=== PATIENT | female | born 1995 ===

== ENCOUNTER 2017-04-03 14:30 | Observation (INO) | payer OTHER, SELFPAY ==
[2017-04-03] MEDS ORDERED: Sodium Chloride 0.9% 1,000 ML IV ONE (14:52)
--- NOTE | 2017-04-03 15:01 | C.PDOC ---
History Of Present Illness Patient is a 21 y/o F , with care, but no ultrasound in this , 18 weeks , presenting with vaginal spotting. Denies passage of clots. Denies dysuria. Reports some suprapubic cramping. Time Seen by Provider: 04/03/17 14:43 Chief Complaint (Nursing): Female Genitourinary Past Medical History Vital Signs: Last Vital Signs Temp 98.3 F 04/03/17 14:31 Pulse 79 04/03/17 14:31 Resp 18 04/03/17 14:31 BP 139/76 04/03/17 14:31 Pulse Ox 99 04/03/17 15:51 Family History: States: Unknown Family Hx - Social History Hx Alcohol Use: No Hx Substance Use: No - Immunization History Hx Tetanus Toxoid Vaccination: Yes Hx Influenza Vaccination: No Hx Pneumococcal Vaccination: No Review Of Systems Except As Marked, All Systems Reviewed And Found Negative. Constitutional: Negative for: Fever, Chills Cardiovascular: Negative for: Chest Pain, Palpitations, Orthopnea, Edema Respiratory: Negative for: Cough, Shortness of Breath, SOB with Excertion, Wheezing Gastrointestinal: Positive for: Abdominal Pain (suprapubic cramping). Negative for: Nausea, Vomiting, Diarrhea Genitourinary: Positive for: Vaginal Bleeding. Negative for: Dysuria, Frequency , Hematuria Skin: Negative for: Rash Neurological: Negative for: Weakness, Numbness Physical Exam - Physical Exam Appears: Well, Non-toxic, No Acute Distress Skin: Normal Color, Warm, Dry Head: Atraumatic, Normacephalic Eye(s): bilateral: Normal Inspection, PERRL, EOMI Neck: Supple Cardiovascular: Rhythm Regular Respiratory: Normal Breath Sounds, No Rales, No Rhonchi, No Wheezing Gastrointestinal/Abdominal: Soft, No Tenderness, Other (gravid) Back: Normal Inspection, No CVA Tenderness Extremity: Normal ROM ED Course And Treatment - Laboratory Results Result Diagrams: 04/03/17 15:09 04/03/17 15:09 O2 Sat by Pulse Oximetry: 99 Medical Decision Making Medical Decision Making: Labs ordered and IVF given in ED. Ultrasound ordered. 3:50PM Preliminary ultrasound as read by me and confirmed by tech shows patient 20 weeks with open cervix. Immediately called Dr. Jeffers, application support administrator senior web applications developer. He requested that patient be brought to L&D. When I went to notify nurse, patient was being transported back from ultrasound and was taken by same serology technician immediately to L&D. Disposition - Disposition Disposition: HOSPITALIZED Disposition Time: 15:51 Condition: FAIR Forms: [facility] (Pashto) - Clinical Impression Clinical Impression: Vaginal bleeding in
[2017-04-03 15:17] LABS: BASO % 0.2 % (0.0-2.0); EOS # 0.4 K/uL (0.0-0.7); EOS % 2.6 % (0.0-4.0); HEMATOCRIT 37.3 % (34.0-47.0); LYMPH # 1.9 K/uL (1.0-4.3); LYMPH % 13.3 % (20.0-40.0); MEAN CELL VOLUME 88.5 fL (81.0-99.0); MEAN CORPUSCULAR HEMOGLOBIN 29.8 pg (27.0-31.0); MEAN CORPUSCULAR HGB CONC 33.7 g/dL (33.0-37.0); MEAN PLATELET VOLUME 9.1 fL (7.2-11.7); MONO % 7.2 % (0.0-10.0); RED CELL DISTRIBUTION WIDTH 13.8 % (11.5-14.5); WHITE BLOOD COUNT 14.4 K/uL (4.8-10.8)
[2017-04-03 15:23] LABS: CHLORIDE 103 mmol/L (98-107)
[2017-04-03 15:24] LABS: POTASSIUM 3.9 mmol/L (3.6-5.2); SODIUM 137 mmol/L (132-148)
[2017-04-03 15:26] LABS: AST/SGOT 15 U/L (14-36); BILIRUBIN,TOTAL 0.2 mg/dL (0.2-1.3); CARBON DIOXIDE 20 mmol/L (22-30); GFR AFRICAN-AMERICAN > 60
[2017-04-03 15:27] LABS: ALB/GLOB RATIO 1.2 (1.0-2.1); ALKALINE PHOSPHATASE 60 U/L (38-126); ALT/SGPT 28 U/L (9-52); BLOOD UREA NITROGEN 11 mg/dL (7-17); CALCIUM 9.3 mg/dl (8.6-10.4); GLUCOSE,RANDOM 77 mg/dL (65-105); TOTAL PROTEIN 6.6 g/dL (6.3-8.3)
[2017-04-03 15:39] LABS: RBC URINE 1 /hpf (0-3); URINE BILIRUBIN NEGATIVE (NEGATIVE); URINE BLOOD NEGATIVE (NEGATIVE); URINE COLOR Yellow (YELLOW); URINE GLUCOSE (UA) NORMAL (Normal); URINE KETONE NEGATIVE (NEGATIVE); URINE LEUKOCYTE ESTERASE NEG Leu/uL (Negative); URINE PROTEIN NEGATIVE (NEGATIVE); URINE UROBILINOGEN NORMAL mg/dL (0.2-1.0)
--- NOTE | 2017-04-03 16:33 | US ---
Pelvic ultrasound History: 19 weeks . Vaginal bleeding. Comparison: None available. Technique: Real-time sonography was performed through the pelvis. Findings: Limited study for viability purposes only. Please note dedicated anatomic survey is recommended at an interval date if clinically indicated. Intrauterine noted. Mean ultrasound age of approximately 20 weeks and 0 days. heart rate of 146 beats per minute. Biparietal diameter measures 4.8 centimeters. Head circumference measures 17.9 centimeters. Abdominal circumference measures 13.6 centimeters. Femur length measures 3.2 centimeters. Cephalic presentation. Posterior placental position. Cervical os appears open/dilated measuring up to 3.3 x 1.1 centimeters as seen on series 1, image 20. No free fluid in the pelvic cul-de-sac. Impression: Limited study for viability purposes only. Dedicated anatomic survey at an interval date is recommended for evaluation of anomalies. Cervical os appears dilated and open measuring up to 3.3 x 1.1 centimeters as seen on series 1, image 20. Clinical correlation and or follow-up ultrasound is recommended to evaluate this region. Intrauterine with mean ultrasound age of approximately 20 weeks 0 days with heart rate of 146 beats per minute. Posterior placenta.
--- NOTE | 2017-04-03 17:44 | OBHP ---
Datetime: 04/03/2017 16:57 IP Adm Impression: , intrauterine ; No Active Labor IP Adm Impression Other: Bulging Membranes at 3cm dilatation IP Admit Plan: Observation/Evaluation Admit Comment, IP Provider: 21yo with IUP at 18.3wks sent to the LND department for further carolyn luation due to a pelvic sonogram report which depicted a 20wk with opened cervix and bulgin g membranes.She reports that she had intercourse yesterday and started having vaginal spotting after wiping since this am. She reports that she was seen at [facility] and had been told she is 18wks . Pt denies any h/o STDs, TOPs, pelvic infections PShx: No surgeries Appeared well, Afebrile Lungs and heart - Normal Abd: soft, NT, BS- present UT- Fundal Height - 20cm FHR- 158, no tenderness Speculum Exam: Cx- 2-3/50/-2. Membranes Bulging through the cervix Assessment: IUP at 18+ weeks Cervical Dilatation with Bulging membranes. No Active labor Plan: Options for management including conservative management or emergent cerclage with risks of the pr ocedure including failure of the cerclage, Rupture of the membranes during the procedure, infection w ith possible pelvic sepsis were discussed. Questions from Pt were answered. Pt prefered to have a cer clage placed. The risks were discussed again. A consent obtained. call center coordinator to OR vaginal cultures for GBS and GC/Chlamydia. NPO. (Annotations: Data stored by N on behalf of user) Extremities - PN: Normal Abdomen - PN: Normal Back - PN: Normal Breast - PN: Normal Lungs - PN: Normal Heart - PN: Normal Neurologic - PN: Normal General - PN: Normal FHR - Baseline A Provider: 156 Membranes, Provider: Bulging Contraction Comments Provider: None Gestation - Est Wks by US: 18.3 EGA AdmitDate IP: 18.5 Vital Signs Provider: Reviewed IP Chief Complaint: Vaginal bleeding; Maternal discomfort NICHD Variability Prov Fetus A: Moderate 6-25bpm NICHD Accel Fetus A IP Provider: 10X10 FHR Category Provider Fetus A: Category II NICHD Decel Fetus A IP Provider: None Dilatation, Provider: 2-3 Effacement, Provider: 50 Station, Provider: -2 Genitourinary Exam: Normal
--- NOTE | 2017-04-03 17:58 | CP.PCM.HP ---
History of Present Illness - History of Present Illness History of Present Illness: 21yo with IUP at 18+wks seen and evaluated for 18wk with an opened cervix and a bulging membranes. 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 Present on Admission - Present on Admission Any Indicators Present on Admission: No Past Patient History - Infectious Disease Hx of Infectious Diseases: None - Past Social History Smoking Status: Never Smoked - CARDIAC Hx Cardiac Disorders: No - PULMONARY Hx Respiratory Disorders: No - NEUROLOGICAL Hx Neurological Disorder: No - HEENT Hx HEENT Problems: No - RENAL Hx Chronic Kidney Disease: No - ENDOCRINE/METABOLIC Hx Endocrine Disorders: No - HEMATOLOGICAL/ONCOLOGICAL Hx Blood Disorders: No - INTEGUMENTARY Hx Dermatological Problems: No - MUSCULOSKELETAL/RHEUMATOLOGICAL Hx Musculoskeletal Disorders: No - GASTROINTESTINAL Hx Gastrointestinal Disorders: No - GENITOURINARY/GYNECOLOGICAL Hx Genitourinary Disorders: No - PSYCHIATRIC Hx Psychophysiologic Disorder: No Hx Substance Use: No - SURGICAL HISTORY Hx Surgeries: No - ANESTHESIA Hx Anesthesia: No Meds Allergies/Adverse Reactions: Allergies Allergy/AdvReac Type Severity Reaction Status Date / Time No Known Allergies Allergy Verified 11/14/15 19:38 Physical Exam - Constitutional Appears: Well - Eye Exam Eye Exam: Normal appearance - Respiratory Exam Respiratory Exam: Clear to Auscultation Bilateral, NORMAL BREATHING PATTERN - Cardiovascular Exam Cardiovascular Exam: REGULAR RHYTHM, RRR - GI/Abdominal Exam GI & Abdominal Exam: Normal Bowel Sounds - Exam Speculum exam: Vaginal Bleeding (Cervix opened with Bulging membranes) - Extremities Exam Extremities exam: Positive for: normal inspection - Neurological Exam Neurological exam: CN II-XII Intact Results - Vital Signs Recent Vital Signs: Last Vital Signs Temp 98.3 F 04/03/17 14:31 Pulse 79 04/03/17 14:31 Resp 18 04/03/17 14:31 BP 139/76 04/03/17 14:31 Pulse Ox 99 04/03/17 16:26 - Labs Result Diagrams: 04/03/17 15:09 04/03/17 15:09 Labs: Laboratory Results - last 24 hr 04/03/17 04/03/17 04/03/17 15:09 15:09 15:09 WBC 14.4 H RBC 4.21 Hgb 12.5 Hct 37.3 MCV 88.5 MCH 29.8 MCHC 33.7 RDW 13.8 Plt Count 248 MPV 9.1 Neut % (Auto) 76.7 H Lymph % (Auto) 13.3 L Mcpherson % (Auto) 7.2 Eos % (Auto) 2.6 Baso % (Auto) 0.2 Neut # 11.0 H Lymph # 1.9 Mcpherson # 1.0 H Eos # 0.4 Baso # 0.0 Sodium 137 Potassium 3.9 Chloride 103 Carbon Dioxide 20 L Anion Gap 18 BUN 11 Creatinine 0.7 Est GFR ( Amer) > 60 Est GFR (Non-Af Amer) > 60 Random Glucose 77 Calcium 9.3 Total Bilirubin 0.2 AST 15 ALT 28 Alkaline Phosphatase 60 Total Protein 6.6 Albumin 3.6 Globulin 3.0 Albumin/Globulin Ratio 1.2 Beta HCG, Quant 9936.00 Urine Color Urine Clarity Urine pH Ur Specific [place] Urine Protein Urine Glucose (UA) Urine Ketones Urine Blood Urine Nitrate Urine Bilirubin Urine Urobilinogen Ur Leukocyte Esterase Urine RBC (Auto) Ur Squamous Epith Cells Amorphous Sediment Blood Type O POSITIVE Blood Type Confirm O POSITIVE Antibody Screen Negative 04/03/17 15:09 WBC RBC Hgb Hct MCV MCH MCHC RDW Plt Count MPV Neut % (Auto) Lymph % (Auto) Mcpherson % (Auto) Eos % (Auto) Baso % (Auto) Neut # Lymph # Mcpherson # Eos # Baso # Sodium Potassium Chloride Carbon Dioxide Anion Gap BUN Creatinine Est GFR ( Amer) Est GFR (Non-Af Amer) Random Glucose Calcium Total Bilirubin AST ALT Alkaline Phosphatase Total Protein Albumin Globulin Albumin/Globulin Ratio Beta HCG, Quant Urine Color Yellow Urine Clarity Hazy Urine pH 7.0 Ur Specific [place] 1.020 Urine Protein Negative Urine Glucose (UA) Normal Urine Ketones Negative Urine Blood Negative Urine Nitrate Negative Urine Bilirubin Negative Urine Urobilinogen Normal Ur Leukocyte Esterase Neg Urine RBC (Auto) 1 Ur Squamous Epith Cells 1 Amorphous Sediment Rare H Blood Type Blood Type Confirm Antibody Screen Assessment & Plan (1) with 18 completed weeks gestation Status: Acute (2) Premature cervical dilation in second trimester Status: Acute - Assessment and Plan (Free Text) Plan: Overlock Operator to the OR Vaginal cultures Mefoxin 2gm IV - Date & Time Date: 04/03/17 Time: 18:03 Decision To Admit - Pt Status Changed To: Hospital Disposition Of: Observation - InPatient: Physician Admission Certification:: tyson - . Admitting Physician: Nasim Jeffers
[2017-04-03] MEDS ORDERED: Penicillin G 5 Million Unit Vial IVPB ONE (18:33)
[2017-04-03] MEDS ORDERED: Penicillin G Potassium 5 MU in Sodium Chloride 0.9% 50 ML IV ONE (18:36)
[2017-04-03] MEDS: Lactated Ringer's 1,000 ML IV SCH (18:47)
[2017-04-03] MEDS ORDERED: Lactated Ringer's 1,000 ML IV ONE ×2 (19:42)
[2017-04-03] MEDS ORDERED: cefOXitin IV 2 gm in Dextrose 2 GM/50 ML BAG IVPB ONE (22:05)
--- NOTE | 2017-04-03 23:15 | PCM.SURG1 ---
Surgeon's Initial Post Op Note - Surgeon's Notes Surgeon: Dr Jeffers Watch Inspector Final Movement: None Type of Anesthesia: Spinal Anesthesia Administered By: Dr Knight Pre-Operative Diagnosis: IUP at 18+ weeks with Cervical Dilatation and Bulging membranes Operative Findings: 18-20wk sized uterus. Cervix: 2-3cm dilated with the amniotic membranes bulging at the level of the internal os. Copious amounts of cervical mucus seen. IV Fluid intake: 500mls. EBL- 5mls. urine output- 50mls Post-Operative Diagnosis: Same as Preop diagnosis Operation Performed: Leblanc Cerclage with Mersilk Specimen/Specimens Removed: None Estimated Blood Loss: EBL {In ML}: 5 Blood Products Given: N/A Post-Op Condition: Good Date of Surgery/Procedure: 04/03/17 Time of Surgery/Procedure: 23:17
[2017-04-04] MEDS ORDERED: NIFEdipine 30 mg ER Tab PO ONE (01:05)
[2017-04-04] MEDS: Penicillin G Potassium 2.5 MU in Dextrose 5% In Water 50 ML IV SCH ×2 (03:00→06:45)
--- NOTE | 2017-04-04 09:34 | OP ---
PROCEDURE DATE: 04/03/2017 PREOPERATIVE DIAGNOSIS: A 21-year-old with intrauterine at 18 weeks with cervical dilatation with bulging membrane. POSTOPERATIVE DIAGNOSIS: A 21-year-old with intrauterine at 18 weeks with cervical dilatation with bulging membrane. PROCEDURE DONE: Leblanc cerclage using 5 mm Mersilene done 04/03/2017. SURGEON: Nasim Jeffers MD TYPE OF ANESTHESIA: Spinal. ANESTHESIA ADMINISTERED BY: Richie Knight MD OPERATIVE FINDINGS: An 18-20-weeks' size . The cervix was about 2-3 cm dilated on vaginal examination where the amniotic membranes bulging at the level of the external os. Copious amounts of cervical mucus was seen. INTRAVENOUS FLUID INTAKE: About 500 mL. ESTIMATED BLOOD LOSS: 500 mL. URINE OUTPUT: 50 mL. COMPLICATIONS: None. DESCRIPTION OF PROCEDURE: After obtaining the informed consent, the patient was sent to the OR with IV running. The patient was placed in the supine position with on the OR table. After adequate spinal anesthesia, the patient was repositioned in the dorsal lithotomy position. The patient was then prepped and draped in the sterile fashion. The urinary bladder was drained using the straight cath with output of about 50 mL of clear urine. The posterior wall of the vagina was depressed using a weighted-speculum and anterior wall was elevated with an L-shaped retractor to expose the cervix. With the above findings, both anterior lip of the cervix and posterior lip of the cervix were held with sponge forceps. Using a sponge stick, the bulging membrane was gently pushed into the uterine cavity. Using 5 mm Mersilene suture 4 areas around the cervix with 5 mm Mersilene suture and a knot was placed at 12 o'clock ,after withdrawing the sponge stick. Once the procedure had been done and cervix found to be closed and the membranes pushed behind it, the instruments were taken off and the patient was replaced in a supine position and later transferred to the recovery room awake and in stable condition. There were no complications during the procedure. All counts of the instrument used and gauze used were correct x3. Nasim Jeffers MD [facility] # [id number]
--- NOTE | 2017-04-04 10:37 | OBPN ---
Datetime: 04/04/2017 10:34 IP Procedures: Sterile Vag Exam Contraction Comments Provider: none IP Progress Note Comment: pt was examined at bed side.still feels pain but better than before ve closed/th/-3 cerclage intact plan dc forte reg deit dc bety cont procardia cont close observation Dilatation, Provider: 0 Effacement, Provider: 0 Station, Provider: -3 Datetime: 04/03/2017 16:57 Membranes, Provider: Bulging FHR - Baseline A Provider: 156 Gestation - Est Wks by US: 18.3 Vital Signs Provider: Reviewed NICHD Accel Fetus A IP Provider: 10X10 FHR Category Provider Fetus A: Category II NICHD Variability Prov Fetus A: Moderate 6-25bpm NICHD Decel Fetus A IP Provider: None
[2017-04-04] MEDS: Lactated Ringer's 1,000 ML IV SCH (15:00)
[2017-04-05] MEDS: Lactated Ringer's 1,000 ML IV SCH (10:38)
--- NOTE | 2017-04-05 10:42 | US ---
Limited Ob ultrasound Indication: Status post cerclage Comparison: Ob , limited ultrasound performed 04/03/17 Technique: Real-time ultrasound was performed through the pelvis. Findings: There is a single living fetus in breech presentation. Posterior placenta. The placenta is not previa. There are no adnexal masses or cysts evident. Cervix measures approximately 3.4 cm. Interval cerclage. Otherwise unremarkable. Estimated heart rate 146.3 beats per min. Impression: Estimated heart rate 146.3 beats per min. Cervix measures approximately 3.4 cm. Interval cerclage. Otherwise unremarkable.
--- NOTE | 2017-04-05 11:09 | OBPN ---
Datetime: 04/05/2017 11:05 IP Progress Note Comment: S-patient had mild spotting overnight but none now O-VS Afebrile Abdomen gravid and nontender; no fundal tenderness SVE def A/P Patient s/o rescue cerclage at 19 wga.[address] by [address] mehta and patient starte don po rcardia post op -continue procardia -monitor closely -modified bedrest -scd for dvt prophylaxis -ultrasound today -check cbc daily -monitor closely for signs of chorio -if stable consider discharge in am
[2017-04-05 11:30] LABS: BASO % 0.3 % (0.0-2.0); EOS # 0.2 K/uL (0.0-0.7); EOS % 1.6 % (0.0-4.0); HEMATOCRIT 35.5 % (34.0-47.0); LYMPH # 1.3 K/uL (1.0-4.3); LYMPH % 10.1 % (20.0-40.0); MEAN CELL VOLUME 88.3 fL (81.0-99.0); MEAN CORPUSCULAR HEMOGLOBIN 29.6 pg (27.0-31.0); MEAN CORPUSCULAR HGB CONC 33.5 g/dL (33.0-37.0); MEAN PLATELET VOLUME 8.7 fL (7.2-11.7); MONO # 0.9 K/uL (0.0-0.8); MONO % 7.3 % (0.0-10.0); RED CELL DISTRIBUTION WIDTH 14.2 % (11.5-14.5)
[2017-04-05 11:47] LABS: ALB/GLOB RATIO 1.2 (1.0-2.1); ALKALINE PHOSPHATASE 55 U/L (38-126); ALT/SGPT 22 U/L (9-52); AST/SGOT 14 U/L (14-36); BILIRUBIN,TOTAL 0.2 mg/dL (0.2-1.3); BLOOD UREA NITROGEN 6 mg/dL (7-17); CALCIUM 9.6 mg/dl (8.6-10.4); CARBON DIOXIDE 21 mmol/L (22-30); CHLORIDE 106 mmol/L (98-107); GFR AFRICAN-AMERICAN > 60; GLUCOSE,RANDOM 85 mg/dL (65-105); POTASSIUM 3.6 mmol/L (3.6-5.2); SODIUM 136 mmol/L (132-148)
[2017-04-05 14:59] LABS: URINE BACTERIA RARE (<OCC); URINE BILIRUBIN NEGATIVE (NEGATIVE); URINE BLOOD 2+ (NEGATIVE); URINE COLOR Colorless (YELLOW); URINE GLUCOSE (UA) NORMAL (Normal); URINE KETONE NEGATIVE (NEGATIVE); URINE LEUKOCYTE ESTERASE NEG Leu/uL (Negative); URINE PROTEIN NEGATIVE (NEGATIVE); URINE UROBILINOGEN NORMAL mg/dL (0.2-1.0)
[2017-04-05 15:03] LABS: RBC URINE 1 /hpf (0-3); WBC URINE 2 /hpf (0-5)
--- NOTE | 2017-04-05 18:13 | OBPN ---
Datetime: 04/05/2017 18:11 IP Progress Note Comment: Patient re-examined with Dr Jeffers speculum exam repeated.+poolimng.nitrazine and ferning positive cevrix 2 cm dilated Exaplined to patient and family about PPROM.Discussed need for removal of cerclage due to pprom an d chorio secondary to uterine tenderness and pain. Cerclage removed cervix 2-3 cm now Discussed induction due to PPROM and chorio Vital Signs Provider: Reviewed
--- NOTE | 2017-04-05 19:44 | OBPN ---
Datetime: 04/05/2017 19:37 IP Progress Note Comment: Patient states that she is feeling some abdominal pain Drumright irregular ctx sve 2-3/50/-3 A/P Patient with previable PPROM and chorio at 19 wga. -continue antibiotics -cytotec 600mcg placed vaginally -monitor closely
[2017-04-05] MEDS: SODIUM CHLORIDE IVPB SCH (20:30)
[2017-04-05] MEDS: AMPICILLIN IVPB SCH (20:30)
[2017-04-06] MEDS: SODIUM CHLORIDE IVPB SCH ×6 (00:30→20:36)
[2017-04-06] MEDS: AMPICILLIN IVPB SCH ×6 (00:30→20:36)
[2017-04-06] MEDS ORDERED: Oxycodone/Acetaminophen 5/325 mg Tab PO PRN ×2 (02:12)
[2017-04-06] MEDS ORDERED: Oxytocin 30 UNIT 30 UNITS/500 ML BAG IV SCH (02:15)
--- NOTE | 2017-04-06 02:15 | OBDS ---
MATERNAL INFORMATION Provider Comments: patient with previable pprom at 19 wga fetus Delivered in the bed.cord clamped and cut.fetus taken to warmer.placenta spontaneously deliv ered.Heavy bleeding noted.pitocin mixed in LR started.Bimenual exam done.small blood clots removed.ut erus empty.Im merthegine 0.2mg given .Bleeding noted to be average after that.Fundus firm.patient sta ble LABOR SUMMARY EDC: 08/30/2017 00:00 No. Babies in Womb: 1 LABOR INFORMATION Cervical Ripening Agents: Cytotec @ (Annotations: 600MG INTRA VAGINAL BY DR STEWARD) Group B Beta Strep: Done, Result Unknown (Annotations: Done 04/03/[address] Jeffers.) MEMBRANES Membranes Rupture Method: Spontaneous Rupture of Membranes: 04/05/2017 17:55 Amniotic Fluid Color: Clear Amniotic Fluid Amount: Scant Amniotic Fluid Odor: None
[2017-04-06 07:32] LABS: BASO % 0.3 % (0.0-2.0); EOS # 0.2 K/uL (0.0-0.7); LYMPH # 1.3 K/uL (1.0-4.3); LYMPH % 7.9 % (20.0-40.0); MEAN CELL VOLUME 88.9 fL (81.0-99.0); MEAN CORPUSCULAR HEMOGLOBIN 29.9 pg (27.0-31.0); MEAN CORPUSCULAR HGB CONC 33.7 g/dL (33.0-37.0); MONO # 1.1 K/uL (0.0-0.8); MONO % 6.5 % (0.0-10.0); PLATELET COUNT 219 K/uL (130-400); RED CELL DISTRIBUTION WIDTH 13.6 % (11.5-14.5); WHITE BLOOD COUNT 16.8 K/uL (4.8-10.8)
[2017-04-06 07:59] LABS: CHLORIDE 100 mmol/L (98-107); SODIUM 136 mmol/L (132-148)
[2017-04-06 08:00] LABS: POTASSIUM 4.1 mmol/L (3.6-5.2)
[2017-04-06 08:02] LABS: ALB/GLOB RATIO 1.1 (1.0-2.1); ALKALINE PHOSPHATASE 56 U/L (38-126); ALT/SGPT 26 U/L (9-52); AST/SGOT 21 U/L (14-36); BILIRUBIN,TOTAL 0.6 mg/dL (0.2-1.3); BLOOD UREA NITROGEN 6 mg/dL (7-17); CARBON DIOXIDE 23 mmol/L (22-30); GFR AFRICAN-AMERICAN > 60; GLUCOSE,RANDOM 64 mg/dL (65-105); TOTAL PROTEIN 5.8 g/dL (6.3-8.3)
[2017-04-06 08:03] LABS: CALCIUM 8.7 mg/dl (8.6-10.4)
--- NOTE | 2017-04-06 08:05 | CP.PCM.PN ---
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 Patient states her pain is well controlled. She has been urinating without pain. She denies fever, nausea or vomiting. Objective - Vital Signs/Intake and Output Vital Signs (last 24 hours): Temp Pulse Resp BP Pulse Ox 98.2 F 86 15 119/70 99 04/03/17 23:20 04/03/17 23:20 04/03/17 23:20 04/03/17 23:20 04/03/17 23:20 - Medications Medications: Current Medications Hydromorphone HCl (Dilaudid) 1 mg IVP Q3H PRN PRN Reason: Pain, moderate (4-7) Last Admin: 04/06/17 00:00 Dose: 1 mg Lactated Ringer's (Lactated Ringer's) 1,000 mls @ 100 mls/hr IV .Q10H [facility] Last Admin: 04/05/17 10:38 Dose: 100 mls/hr Ampicillin 1 gm/ Sodium (Chloride) 100 mls @ 50 mls/hr IVPB Q4H [facility] Last Admin: 04/06/17 04:31 Dose: 50 mls/hr Gentamicin Sulfate 80 mg/ (Sodium Chloride) 102 mls @ 100 mls/hr IVPB Q8H [facility] Last Admin: 04/06/17 01:00 Dose: 100 mls/hr Oxytocin (Pitocin) 30 units in 500 mls @ 125 mls/hr IV .Q4H [facility] Ibuprofen (Motrin Tab) 600 mg PO Q6 PRN PRN Reason: Pain, Mild (1-3) Misoprostol (Cytotec) 400 mcg PO Q4H [facility] Stop: 04/06/17 11:31 Last Admin: 04/05/17 23:41 Dose: Not Given Morphine Sulfate (Morphine) 2 mg IM Q4 PRN PRN Reason: Pain, severe (8-10) Last Admin: 04/04/17 01:08 Dose: 2 mg Oxycodone/Acetaminophen (Percocet 5/325 Mg Tab) 1 tab PO Q4H PRN PRN Reason: Pain, moderate (4-7) Stop: 04/09/17 02:13 Oxycodone/Acetaminophen (Percocet 5/325 Mg Tab) 2 tab PO Q4H PRN PRN Reason: Pain, severe (8-10) Stop: 04/09/17 02:13 - Labs Labs: 04/06/17 07:14 04/05/17 11:25 - Constitutional Appears: No Acute Distress - Head Exam Head Exam: ATRAUMATIC, NORMAL INSPECTION, NORMOCEPHALIC - Eye Exam Eye Exam: EOMI, Normal appearance, PERRL Pupil Exam: NORMAL ACCOMODATION - ENT Exam ENT Exam: Mucous Membranes Moist - Respiratory Exam Respiratory Exam: Clear to Ausculation Bilateral, NORMAL BREATHING PATTERN - Cardiovascular Exam Cardiovascular Exam: REGULAR RHYTHM, +S1, +S2 - GI/Abdominal Exam GI & Abdominal Exam: Soft. absent: Tenderness Additional comments: Fundal height below the umbilicus - Extremities Exam Extremities Exam: Normal Inspection. absent: Tenderness - Neurological Exam Neurological Exam: Alert, Awake, Oriented x3 - Psychiatric Exam Psychiatric exam: absent: Normal Mood (melanchonlic ) - Skin Skin Exam: Normal Color, Warm Assessment and Plan - Assessment and Plan (Free Text) Assessment: Patient s/p miscarriage day 1 is a bit melancholic. - f/u H/H this morning - PO pain medications - Encouraged Ambulation - Continue regular diet - Monitor closely Case Discussed with Dr. Mina Shane PGY-1
[2017-04-06 08:44] VITALS: O2SAT 98
[2017-04-06 09:03] LABS: EOSINOPHIL 3 % (0-4); NEUTROPHIL 79 % (50-75); TOTAL CELLS COUNTED 100
[2017-04-06 09:05] LABS: LARGE PLATELETS PRESENT
[2017-04-07] MEDS: AMPICILLIN IVPB SCH ×3 (01:22→09:22)
[2017-04-07] MEDS: SODIUM CHLORIDE IVPB SCH ×3 (01:22→09:22)
[2017-04-07 08:33] VITALS: BP 105/57
[2017-04-07 08:55] LABS: BASO % 0.3 % (0.0-2.0); EOS # 0.4 K/uL (0.0-0.7); EOS % 3.9 % (0.0-4.0); HEMATOCRIT 32.2 % (34.0-47.0); LYMPH # 1.5 K/uL (1.0-4.3); LYMPH % 15.1 % (20.0-40.0); MEAN CORPUSCULAR HEMOGLOBIN 30.1 pg (27.0-31.0); MEAN CORPUSCULAR HGB CONC 33.9 g/dL (33.0-37.0); MEAN PLATELET VOLUME 8.9 fL (7.2-11.7); MONO # 0.6 K/uL (0.0-0.8); MONO % 6.3 % (0.0-10.0); RED CELL DISTRIBUTION WIDTH 13.6 % (11.5-14.5); WHITE BLOOD COUNT 10.2 K/uL (4.8-10.8)
[2017-04-07 17:35] VITALS: PULSE 76; RESP 20; TEMP 97.9
--- NOTE | 2017-04-07 22:49 | OBDCSUM ---
Datetime: 04/07/2017 11:24 Discharged to, Provider: Home Follow up at, Provider: [facility] Disch Instr Activity: Normal activity Disch Instr Diet: Regular Discharge Diet restrict Prov: none Discharge Diagnosis, Provider: Amnionitis Discharge Time: 04/07/2017 11:25 Follow up in weeks, Provider: 04/13/17 Disch Referrals: None Contraception discussed, Prov: Yes Disch Activity Restrictions: No exercising; No lifting; No sexual activity; Nothing in vagina - Inte rcourse, tampons, douche Discharge Diagnosis Prov Other: Spontaneous at 19 weeks PPROM Contraception counseling Anemia Contraception after Delivery: Undecided
--- NOTE | 2017-04-07 22:49 | OBPPN ---
Datetime: 04/07/2017 22:31 PP Pain Prov: Within normal limits PP Nausea Prov: Denies PP Flatus Prov: Yes PP BM Prov: No PP Breasts Prov: Not Done PP Heart Prov: Normal PP Lungs Prov: Normal PP Abdomen/Uterus Prov: Abnormal PP Lochia Prov: Normal PP Vulva/Perineum Prov: Not Done PP CVA Tenderness Prov: Normal PP Extremities Prov: Normal PP C/S Incision Prov: Not Applicable PP Progress Prov: Not Applicable PP Comments Phys Exam Prov: Abdomen: Soft, non distended. (+) fundal tenderness. Fundus firm, mobile , 18 weeks. All other systems reviewed and are negative PP Plan Prov: Discharge PP Progress Note Prov: Patient received in bed, room 456 earlier this morning; sleeping - easily aleshia kened. 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 No other complaints P.E.: as above. Awake, alert, oriented to time person and place. Pleasant and cooperative - CBC today: WBC 10.2; H/H 10.9/32.2. Rh (+) Assessment: PPD#1, 21 y.o. P0010, S/P spontaneous at 19 weeks - history/presentaiton sugg estive of cervical incompetence. Failed salvage cerclage; PPROM and evidence of chorioamnionitis. Af ebrile on IV antibiotics. WBC trending down. Patient desires contraception: options discussed includ ing but not limited to IUD, patch, injection, pills, condoms. Patient is clinically stable. Plan: 1) "Bereavement" counseling with Green Marketing Analyst, prior to discharge 2) Discharge home 3) See full discharge instructions Vital Signs Provider PP: Reviewed
== END 2017-04-07 12:15 | disposition home or self-care (01) ==
LOC: C.EROB 14:30 → C.ER 14:30 → C.4D 18:04 → UNDOADMOB 18:04 → C.4D 19:48 → C.4M 04-06 03:35 → UNDODISOB 04-07 12:15
PROVIDERS: ADMIT Obstetrics & Gynecology; ATTEND Obstetrics & Gynecology
DX: O20.0 Threatened abortion (principal); Z3A.19 19 weeks gestation of pregnancy; O20.9 Hemorrhage in early pregnancy, unspecified; O41.1220 Chorioamnionitis, second trimester, not applicable or unspecified; Z37.9 Outcome of delivery, unspecified; O34.32 Maternal care for cervical incompetence, second trimester; Z37.1 Single stillbirth
CPT/HCPCS: 36415; 59320; 76815; 80053; 81001; 84702; 85025; 86850; 86900; 87081; 87086; 87491; 87591; 88305; 99284; G0378; J0290; J0694; J1170; J1580; J2210; J2270; J2540; J7050; J7120